=== PATIENT | female | born 1960 | race Caucasian/White ===

== ENCOUNTER 2020-08-18 18:13 | Emergency (ER) | payer BC ==
[~2020-08-18] VITALS: Ht 154.9 cm; Wt 54.4 kg
[2020-08-19 03:41] VITALS: BP 154/80
== END 2020-08-18 22:45 | disposition home or self-care (01) ==
LOC: ER 20:07
DX: M79.661 Pain in right lower leg (principal)
CPT/HCPCS: 93971